=== PATIENT | female | born 1945 | race Caucasian/White ===

== ENCOUNTER → 2016-11-26 | Outpatient (CLI) | payer MEDICARE ==
[2016-11-26 09:24] LABS: AUTOMATED NEUTROPHIL # 3.1 TH/MM3 (1.8-7.7); BASOPHIL % 0.4 % (0.0-2.0); EOSINOPHIL # 0.3 TH/MM3 (0-0.4); EOSINOPHIL % 5.8 % (0.0-4.0); HEMATOCRIT 38.4 % (35.0-46.0); HEMO FLAGS DIFF FINAL; LYMPH % 27.3 % (9.0-44.0); LYMPHOCYTE # 1.4 TH/MM3 (1.0-4.8); MEAN CORPUSCULAR HGB CONC 33.4 % (32.0-36.0); MONO % 8.6 % (0.0-8.0); NEUT % 57.9 % (16.0-70.0); PLATELET COUNT 163 TH/MM3 (150-450); RED BLOOD COUNT 4.27 MIL/MM3 (4.00-5.30); RED CELL DISTRIBUTION WIDTH 13.1 % (11.6-17.2); WHITE BLOOD COUNT 5.3 TH/MM3 (4.0-11.0)
[2016-11-26 13:07] LABS: ALT (GPT) 30 U/L (10-53); ANION GAP 8 MEQ/L (5-15); AST (GOT) 20 U/L (15-37); BICARBONATE 26.4 MEQ/L (21.0-32.0); BLOOD UREA NITROGEN 15 MG/DL (7-18); CHLORIDE 108 MEQ/L (98-107); GLOMERULAR FILTRATION RATE 90 ML/MIN (>89); SODIUM (NA) 142 MEQ/L (136-145)
[2016-11-26 13:35] LABS: ALKALINE PHOSPHATASE 87 U/L (45-117); HDL CHOLESTEROL 67.8 MG/DL (40.0-60.0); LDL CHOLESTEROL 110 MG/DL (0-99); THYROXINE (T4) 10.4 MCG/DL (4.8-13.9); TOTAL BILIRUBIN ADULT 0.4 MG/DL (0.2-1.0)
== END ==
LOC: PLAB 09:07
PROVIDERS: ATTEND Family Medicine
DX: E03.9 Hypothyroidism, unspecified (principal); E78.2 Mixed hyperlipidemia; K21.9 Gastro-esophageal reflux disease without esophagitis; M50.30 Other cervical disc degeneration, unspecified cervical region
CPT/HCPCS: 36415; 80053; 80061; 84436; 84443; 85025

== ENCOUNTER → 2017-03-06 | Day surgery (SDC) | payer MEDICARE ==
[~2017-03-06] MED LIST: ACETAMINOPHEN/HYDROcodone 325 MG/5 MG TAB ONE; BUPIVACAINE/EPINEPHRINE 0.25% 50 ML VIAL ONE; KETOROLAC TROMETHAMINE 30 MG/ML (IVP) VIAL IV PUSH ONE; LACTATED RINGER'S 1000 ML INJ 1,000 ML ONE; LIDOCAINE 1%/EPINEPHrine 1:100,000 SOLN 20 ML VIAL ONE; MIDAZOLAM HCL 2 MG/2 ML VIAL ONE; ONDANSETRON HCL 4 MG/2 ML VIAL IV PUSH ONE; PROPOFOL 200 MG/20 ML AMP IV ONE; ceFAZolin INJ 1,000 MG VIAL ONE
--- NOTE | 2017-03-06 14:23 | TN ---
cc: EDUARD VIDAL M.D. DATE OF SURGERY: 03/06/2017 PREOPERATIVE DIAGNOSIS Right inguinal hernia. POSTOPERATIVE DIAGNOSIS Right indirect inguinal hernia. PROCEDURE Repair right indirect inguinal hernia with mesh ANESTHESIA General. SURGEON Dr. Vidal INDICATION This is a pleasant 72-year-old female who has had a fairly symptomatic large right inguinal hernia. Plans were made for above. DETAILS OF PROCEDURE The patient was taken to the operating room and placed in the supine position. After anesthesia her groin is prepped with Betadine. We make a curvilinear incision overlying the external and internal ring, dissect down through Slime's fascia identifying Camper's fascia which is incised. The external oblique aponeurosis was then incised. A moderate-size to large-size inguinal hernia is seen, indirect type. This is completely reduced. We imbricate the hernia sac upon itself to keep this in while we sew the mesh in place. The round ligament is almost non-existent and is ligated. We then take a piece of polypropylene mesh and secure it to the pubic tubercle, Emil's ligament and the iliopubic tract out laterally with 0 Ethibond and medially to the conjoined tendon and to the internal oblique aponeurosis more superiorly. After this is done we then irrigate. Hemostasis is assured. We close the external oblique aponeurosis with 2-0 Vicryl, Slime's with 2-0 Vicryl and skin with 4-0 Vicryl. Steri-Strips are applied. Sterile bandage applied. The patient tolerated the procedure well and had no immediate post-op complication. Eduard Vidal MD JDB/PALOMO /2:08 PM /2:13 PM MINAL
== END | disposition home or self-care (01) ==
LOC: ESDC 09:18
PROVIDERS: ATTEND Surgery
DX: K40.90 Unilateral inguinal hernia, without obstruction or gangrene, not specified as recurrent (principal)
CPT/HCPCS: 00830; 49505; C1781; J0690; J1885; J2250; J2405; J3010; J7120

== ENCOUNTER → 2017-09-12 | Outpatient (CLI) | payer MEDICARE ==
[2017-09-12 09:17] LABS: AUTOMATED NEUTROPHIL # 2.8 TH/MM3 (1.8-7.7); BASOPHIL % 0.4 % (0.0-2.0); EOSINOPHIL # 0.1 TH/MM3 (0-0.4); EOSINOPHIL % 2.4 % (0.0-4.0); HEMATOCRIT 35.4 % (35.0-46.0); HEMO FLAGS DIFF FINAL; LYMPH % 30.1 % (9.0-44.0); LYMPHOCYTE # 1.5 TH/MM3 (1.0-4.8); MEAN CELL VOLUME 91.5 FL (80.0-100.0); MEAN CORPUSCULAR HEMOGLOBIN 31.8 PG (27.0-34.0); MEAN CORPUSCULAR HGB CONC 34.7 % (32.0-36.0); MONO % 10.5 % (0.0-8.0); NEUT % 56.6 % (16.0-70.0); PLATELET COUNT 179 TH/MM3 (150-450); RED BLOOD COUNT 3.87 MIL/MM3 (4.00-5.30); RED CELL DISTRIBUTION WIDTH 13.1 % (11.6-17.2); WHITE BLOOD COUNT 4.9 TH/MM3 (4.0-11.0)
[2017-09-12 13:00] LABS: ALT (GPT) 37 U/L (10-53); ANION GAP 8 MEQ/L (5-15); AST (GOT) 23 U/L (15-37); BICARBONATE 26.3 MEQ/L (21.0-32.0); BLOOD UREA NITROGEN 17 MG/DL (7-18); CHLORIDE 106 MEQ/L (98-107); GLOMERULAR FILTRATION RATE 96 ML/MIN (>89); GLUCOSE,FASTING 89 MG/DL (74-99); POTASSIUM 3.7 MEQ/L (3.5-5.1); SODIUM (NA) 140 MEQ/L (136-145)
[2017-09-12 13:10] LABS: ALKALINE PHOSPHATASE 65 U/L (45-117); HDL CHOLESTEROL 81.7 MG/DL (40.0-60.0); LDL CHOLESTEROL 86 MG/DL (0-99); THYROXINE (T4) 13.2 MCG/DL (4.8-13.9); TOTAL BILIRUBIN ADULT 0.5 MG/DL (0.2-1.0)
== END ==
LOC: OLAB 08:42
PROVIDERS: ATTEND Family Medicine
DX: E03.9 Hypothyroidism, unspecified (principal); E78.2 Mixed hyperlipidemia; M50.30 Other cervical disc degeneration, unspecified cervical region; F51.01 Primary insomnia
CPT/HCPCS: 36415; 80053; 80061; 84436; 84443; 85025